=== PATIENT | male | born 1980 | race Caucasian/White ===

== ENCOUNTER 2018-11-20 16:50 | Emergency (ER) | payer SELFPAY ==
[~2018-11-20] VITALS: Ht 170.2 cm; Wt 90.9 kg
[~2018-11-20 16:50] MED LIST: ALPR0.5T PO; ALPR2TAB PO; CHOL100062 PO; DRON10CA5 PO; MULT-552 PO; OMEP20CA16 PO; TRAM-174 PO
[2018-11-20 16:54] VITALS: Ht 170.2 cm; Wt 90.9 kg
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
[2018-11-20 18:48] VITALS: BP 131/85; PULSE 86; RESP 18
[2018-11-20] MEDS ORDERED: DIPHTH/TET/ACEL PERTUSS (ADULT) 0.5 ML VIAL IM* ONE (19:00)
== END 2018-11-20 18:49 | disposition home or self-care (01) ==
LOC: FTE 16:50
DX: S81.811A Laceration without foreign body, right lower leg, initial encounter (principal); X99.8XXA Assault by other sharp object, initial encounter; Z23 Encounter for immunization; Z87.891 Personal history of nicotine dependence
CPT/HCPCS: 90471; 90715